=== PATIENT | female | born 1975 | race Caucasian/White ===

== ENCOUNTER → 2017-03-05 | Outpatient (CLI) | payer OTHER ==
--- NOTE | 2017-03-05 10:13 | RAD ---
Indication dysfunctional uterine bleeding. Initially transabdominal scans were obtained. The initial transabdominal scans were supplemented with transvaginal scans. HCG status is uncertain but for the purposes of this dictation will be assumed to be negative. The uterus measures approximately 10 x 6 x 5 cm. Endometrial thickness of approximately 6 mm is normal. Occasional nabothian cysts were noted. A significant finding is not seen associated with the ovaries. The right ovary contains a hypoechoic 2.5 cm mass compatible with a cyst. A slightly smaller cyst measuring approximately 2.3 cm is noted associated with the left ovary. IMPRESSION: Ovarian cysts. Unremarkable uterus and endometrium
== END | disposition home or self-care (01) ==
LOC: US 08:37
PROVIDERS: ATTEND Physician Assistant Medical
DX: N83.201 Unspecified ovarian cyst, right side (principal); N83.202 Unspecified ovarian cyst, left side; N93.8 Other specified abnormal uterine and vaginal bleeding
CPT/HCPCS: 76830; 76856

== ENCOUNTER → 2017-08-13 | Outpatient (CLI) | payer OTHER ==
--- NOTE | 2017-08-13 10:38 | RAD ---
Exam performed: 2 views of the chest. Indication: FOLLOW UP PNEUMONIA, FLUID REMOVED ON RT SIDE Date of Service:08/13/2017 2:00 AM . Comparison : None available. Findings: PA and lateral radiographs of the chest reveal a normal cardiomediastinal contour. The lungs are clear. Slight elevation of the right hemidiaphragm. Linear streaky opacities medial right lung base probably atelectasis. No pleural fluid is seen. The visualized osseous structures are unremarkable. Impression: Minimal right basilar atelectasis, otherwise unremarkable study
== END | disposition home or self-care (01) ==
LOC: DXRADRC 10:19
PROVIDERS: ATTEND Physician Assistant Medical
DX: J18.9 Pneumonia, unspecified organism (principal); J98.11 Atelectasis; J98.6 Disorders of diaphragm
CPT/HCPCS: 71020

== ENCOUNTER → 2018-01-15 | Outpatient (CLI) | payer OTHER ==
--- NOTE | 2018-01-15 16:19 | RAD ---
3 views right knee 01/15/2018 2:00 AM Indication: PAIN IN KNEE Comparison: None Findings: There is no fracture or dislocation identified. Articular surfaces are uninterrupted. Soft tissues are unremarkable. Impression: No evidence of acute osseous abnormality
== END | disposition home or self-care (01) ==
LOC: PMG 15:35
PROVIDERS: ATTEND Nurse Practitioner Family
DX: M25.561 Pain in right knee (principal)
CPT/HCPCS: 73562

== ENCOUNTER → 2019-01-14 | Outpatient (CLI) | payer OTHER ==
--- NOTE | 2019-01-14 13:24 | RAD ---
DATE: 01/14/2019 EXAM: MAMMO YULY SCREENING BILATERAL HISTORY: Routine screening COMPARISON: 07/13/2016 This study was interpreted with the benefit of Computerized Aided Detection (CAD). Breast Density: SCATTERED The breast parenchyma shows scattered fibroglandular densities. Breast parenchyma level B. FINDINGS: 2-D and 3-D tomosynthesis imaging was performed in CC and MLO projections. No new or enlarging breast densities are seen. Minimal benign type calcifications present. No suspicious microcalcifications have developed. IMPRESSION: Stable mammograms without evidence of malignancy. BI-RADS CATEGORY: 2 BENIGN FINDING(S) RECOMMENDED FOLLOW-UP: 12M 12 MONTH FOLLOW-UP PQRS compliance statement: Patient information was entered into a reminder system with a target due date for the next mammogram. Mammography is a sensitive method for finding small breast cancers, but it does not detect them all and is not a substitute for careful clinical examination. A negative mammogram does not negate a clinically suspicious finding and should not result in delay in biopsying a clinically suspicious abnormality. "Our facility is accredited by the [employer] Mammography [employer]."
== END | disposition home or self-care (01) ==
LOC: MAMMO 08:48
PROVIDERS: ATTEND Physician Assistant Medical
DX: Z12.31 Encounter for screening mammogram for malignant neoplasm of breast (principal)
CPT/HCPCS: 77063; 77067

== ENCOUNTER → 2019-08-13 | Outpatient (CLI) | payer OTHER ==
--- NOTE | 2019-08-13 12:26 | RAD ---
EXAM: Cervical spine, 5 views. HISTORY: Cubital tunnel syndrome. COMPARISON: None. FINDINGS: 5 views of the cervical spine are obtained. There is mild kyphosis centered at C5. There is minimal anterolisthesis of C4 on C5 and retrolisthesis of C5 on C6. There is degenerative endplate remodeling with disc space narrowing and osteophytosis at C5-C6. There is left greater than right facet arthropathy at C4-C5 and C5-C6. There is suspected mild right foraminal stenosis at C4-C5 and left foraminal stenosis at C5-C6. IMPRESSION: 1. Degenerative change primarily at C5-C6, and to a lesser extent, C4-C5. 2. Mild cervical kyphosis and slight listhesis at C4-C5 and C5-C6. Electronically signed by: Desiree Olsen MD (08/13/2019 12:23 PM) [facility]
== END | disposition home or self-care (01) ==
LOC: RAD 11:57
PROVIDERS: ATTEND Physician Assistant Medical
DX: G56.23 Lesion of ulnar nerve, bilateral upper limbs (principal); M47.892 Other spondylosis, cervical region; M40.292 Other kyphosis, cervical region; M48.02 Spinal stenosis, cervical region
CPT/HCPCS: 72050

== ENCOUNTER → 2020-01-20 | Outpatient (CLI) | payer OTHER ==
--- NOTE | 2020-01-21 12:05 | RAD ---
History: Routine screening. Technique: Bilateral digital mammographic routine views were obtained with 2-D and 3-D technique including CAD - computer aided detection. Comparison: 01/14/2019, 07/13/2016. Findings: Breast Tissue Density B :The breast tissue is composed of mixed fatty and fibroglandular tissue. There are no suspicious masses, microcalcifications or areas of architectural distortion. Impression: Negative mammogram. BI-RADS Category 1: Negative. Normal interval followup. A mammogram does not have 100% sensitivity and therefore a negative imaging study should not delay further work up of a suspicious abnormality. The patient will receive a letter with the results in the mail. Patient information is entered into the reminder system with a target due date for the next screening mammogram. The patient will receive a reminder. "Our facility is accredited by the [employer] Mammography Program." BI-RADS 1 -- negative findings (within normal)
== END | disposition home or self-care (01) ==
LOC: MAMMO 07:52
PROVIDERS: ATTEND Physician Assistant Medical
DX: Z12.31 Encounter for screening mammogram for malignant neoplasm of breast (principal)
CPT/HCPCS: 77063; 77067

== ENCOUNTER 2020-12-25 12:27 | Emergency (ER) | payer OTHER ==
[~2020-12-25] VITALS: Ht 165.1 cm; Wt 82.6 kg
--- NOTE | 2020-12-25 12:38 | PHYS DOC ---
Adult General HPI HPI Patient is a 45-year-old female presents emergency department complaining of bilateral arm tightness that radiated to her center chest and through to her back that started approximately 20 minutes prior to arrival while she was sitting in bleachers while watching her daughter at a game. Patient complains of shortness of breath, reports a 10/10 pain on a 1-10 pain scale. Patient states that she broke out in a sweat while in route to the emergency department, patient complains of nausea, denies vomiting abdominal pain diarrhea or constipation. Patient reports a similar episode approximately 2 weeks ago, however she does not remember how long the episode lasted for only that it just resolved on its own. Patient reports a allergy to morphine. Patient states her past medical history is leukemia which she sees Dr. Riley as oncologist. Patient past surgical history of a hysterectomy years ago. Review of Systems Review of Systems 14 body systems of review of systems have been reviewed. See HPI for pertinent positives and negative responses, otherwise all other systems are negative, nonpertinent or noncontributory. Current Medications Current Medications Patient reports taking her oncology medication TASIGNA unknown dose, and a radhika sterol medication that she cannot recall name or dose. Physical Exam Physical Exam Constitutional: Well developed, well nourished, no acute distress, non-toxic appearance. Patient clutching chest during physical exam HENT: Normocephalic, atraumatic, bilateral external ears normal, oropharynx moist, no oral exudates, nose normal. Eyes: PERRLA, EOMI, conjunctiva normal, no discharge. Neck: Normal range of motion, no tenderness, supple, no stridor. Cardiovascular:Heart rate regular rhythm, no murmur, bradycardic rhythm. Lungs & Thorax: Bilateral breath sounds clear to auscultation all lung barragan. Abdomen: Bowel sounds normal, soft, no tenderness, no masses, no pulsatile masses. Skin: Warm, dry, no erythema, no rash. Back: No tenderness, no CVA tenderness. Extremities: No tenderness, no cyanosis, no clubbing, ROM intact, no edema. Neurologic: Alert and oriented X 3, normal motor function, normal sensory function, no focal deficits noted. Psychologic: Affect normal, judgement normal, mood normal. EKG EKG EKG performed at [facility] by [facility], heart rate 58 bpm, TX interval 0.102, QTc interval 0.404, ST depression in leads II, III and aVF, acute STEMI noted, EKG interpreted by ED attending physician Dr. Ren. Second EKG performed at 1238, TX interval 0.142, QTc interval 0.422, heart rate 62 bpm, ST depression leads II, III, aVF, STEMI noted, EKG interpreted by ED attending physician Dr. Ren. Radiology/Procedures Radiology/Procedures [] Heart Score HEART Score for Chest Pain: HEART Score for Chest Pain Response (Comments) Value History Highly Suspicious [address] Depression 2 Age >45 - < 65 1 Risk Factors No Risk Factors 0 Total 5 Risk Factors: Risk Factors: DM, Current or recent (<one month) smoker, HTN, HLP, family history of CAD, obesity. Risk Scores: Risk Factors: DM, Current or recent (<one month) smoker, HTN, HLP, family history of CAD, obesity. Course & Med Decision Making Course & Med Decision Making Pertinent Labs and Imaging studies reviewed. (See chart for details) 45-year-old female, vital signs reviewed, presents emergency department with acute onset of chest pain that started in her arms and travel to her chest, EKG showed acute STEMI, discussed case with [facility] ED attending Dr. Villanueva, ED attending Dr. Ren reviewed patient case with reverser Dr. Smith, patient started on 324 chewable aspirin, heparin protocol, given 1/2 mg IV Dilaudid, 4 mg IV Zofran for nausea. Patient on telemetry monitor, pulse oximetry, noninvasive blood pressure monitoring. Patient emergent transfer to [facility] Training Officer. Could not complete heart score related to troponin result not available at time of transfer to [facility] Officer. At 1300, EMS arrived to ED to transport patient to [facility], upon reexamination of the patient, patient reports her pain down to a 7/10 on a 1-10 pain scale, transfer forms completed, patient is stable for transfer at this time. Critical Care Procedure Note Total critical care time: Approximately 30 minutes Due to a high probability of clinically significant, life threatening deterioration, the patient required my highest level of preparedness to intervene emergently and I personally spent this critical care time directly and personally managing the patient. This critical care time included obtaining a history; examining the patient; pulse oximetry; ordering and review of studies; arranging urgent treatment with development of a management plan; evaluation of patient's response to treatment; frequent reassessment; and, discussions with other providers. This critical care time was performed to assess and manage the high probability of imminent, life-threatening deterioration that could result in multi-organ failure. It was exclusive of separately billable procedures and treating other patients and teaching time. Please see MDM section and the rest of the note for further information on patient assessment and treatment. Dragon Disclaimer Dragon Disclaimer This electronic medical record was generated, in whole or in part, using a voice recognition dictation system. Departure Departure: Impression: Primary Impression: STEMI (ST elevation myocardial infarction) Disposition: 02 DC/TRF OTHER SHORT TERM HOS (Patient transferred to [facility] Training Officer team, Dr. Smith excepted patient in transfer and admission.) Condition: CRITICAL (Condition critical related to diagnosis STEMI, patient stable for transfer) Referrals: TRISTEN DEJESUS (PCP) Problem Qualifiers Primary Impression: STEMI (ST elevation myocardial infarction) Involved coronary artery: other anterior wall coronary artery Qualified Codes: I21.09 - ST elevation (STEMI) myocardial infarction involving other coronary artery of anterior wall RAJWINDER JANG APRN Dec 25, 2020 12:38
[2020-12-25] MEDS ORDERED: ASPIRIN CHEWABLE 81 MG TABLET. PO ONE (12:45)
[2020-12-25] MEDS ORDERED: HEPARIN for IV BOLUS 10,000 UNIT/10 ML VIAL. IV ONE (12:45)
[2020-12-25] MEDS ORDERED: HEPARIN 25,000UTS/250ML PREMIX 250 ML IV PRN (12:45)
[2020-12-25] MEDS ORDERED: HEPARIN for IV BOLUS 10,000 UNIT/10 ML VIAL. IV PRN (12:45)
[2020-12-25] MEDS ORDERED: HYDROmorphone PF 1 MG/ML DISP.SYRIN IVP ONE (12:45)
[2020-12-25] MEDS ORDERED: ONDANSETRON PF 4 MG/2 ML VIAL. IVP ONE (13:00)
[2020-12-25 13:03] VITALS: BP 109/71
[2020-12-25 13:21] LABS: BASO % 0 % (0-3); EOS # 0.1 x10^3/uL (0.0-0.7); EOS % 1 % (0-3); HEMATOCRIT 39.7 % (36.0-47.0); LYMPH # 3.4 x10^3/uL (1.0-4.8); LYMPH % 29 % (24-48); MEAN CORPUSCULAR HEMOGLOBIN 30 pg (25-35); MEAN CORPUSCULAR HGB CONC 33 g/dL (31-37); MEAN CORPUSCULAR VOLUME 91 fL (79-100); MONO # 0.6 x10^3/uL (0.0-1.1); MONO % 6 % (0-9); NEUT # 7.5 x10^3uL (1.8-7.7); NEUT % 64 % (31-73); PLATELET COUNT 320 x10^3/uL (140-400); RED BLOOD COUNT 4.35 x10^6/uL (3.50-5.40); RED CELL DISTRIBUTION WIDTH 13.9 % (11.5-14.5); WHITE BLOOD COUNT 11.6 x10^3/uL (4.0-11.0)
[2020-12-25 13:41] LABS: ANION GAP 13 (6-14); BLOOD UREA NITROGEN 8 mg/dL (7-20); BUN/CREATININE RATIO 10 (6-20); CALCIUM 9.4 mg/dL (8.5-10.1); CARBON DIOXIDE 22 mmol/L (21-32); CHLORIDE 104 mmol/L (98-107); CREATININE 0.8 mg/dL (0.6-1.0); GFR 77.6; GLUCOSE 147 mg/dL (70-99); POTASSIUM 3.1 mmol/L (3.5-5.1); SODIUM 139 mmol/L (136-145)
[2020-12-25 13:57] LABS: ALBUMIN 3.6 g/dL (3.4-5.0); ALBUMIN/GLOBULIN RATIO 0.9 (1.0-1.7); ALK PHOS 81 U/L (46-116); ALT (SGPT) 29 U/L (14-59); AST (SGOT) 25 U/L (15-37); TOTAL BILIRUBIN 1.2 mg/dL (0.2-1.0); TOTAL PROTEIN 7.6 g/dL (6.4-8.2)
--- NOTE | 2020-12-25 14:18 | EKG ---
[address] [address] Test Date: 2020-12-25 Test Time: 12:38:14 Pat Name: SHAHRIAR PEACOCK Department: Room: Gender: F Rectifying Attendant: OFELIA : 1975 Requested By: RAJWINDER JANG Order Number: [id number] Reading MD: Measurements Intervals [place] Rate: 62 P: 57 RI: 142 QRS: 48 QRSD: 74 T: 42 QT: 414 QTc: 422 Interpretive Statements SINUS RHYTHM ST ABNORMALITY, POSSIBLE INFERIOR SUBENDOCARDIAL INJURY ABNORMAL ECG RI6.02 No previous ECG available for comparison
== END 2020-12-25 13:14 | disposition short-term general hospital (02) ==
LOC: ER 12:27
DX: I21.3 ST elevation (STEMI) myocardial infarction of unspecified site (principal); R06.02 Shortness of breath; R11.0 Nausea; Z88.6 Allergy status to analgesic agent
CPT/HCPCS: 36415; 80053; 82553; 84484; 85025; 85610; 85730; 87426; 93005; 96365; 96375; 99285; C9803; J1170; J1644; J2405; U0003

== ENCOUNTER → 2021-02-15 | Outpatient (CLI) | payer OTHER ==
--- NOTE | 2021-02-17 17:10 | RAD ---
DATE: 02/15/2021 EXAM: MAMMO YULY SCREENING BILATERAL HISTORY: Screening COMPARISON: 07/13/2016, 01/14/2019, 01/20/2020 This study was interpreted with the benefit of Computerized Aided Detection (CAD). Breast Density: SCATTERED The breast parenchyma shows scattered fibroglandular densities. Breast parenchyma level B. FINDINGS: There is an asymmetry in the upper left breast far posterior depth on MLO view. No suspicious mass, architectural distortion, or calcifications. IMPRESSION: Asymmetry in the upper posterior left breast. Recommend spot compression MLO and full-field ML views to further evaluate. BI-RADS CATEGORY: 0 INCOMPLETE: NEEDS ADDITIONAL IMAGING EVALUATION AND/OR PRIOR MAMMOGRAMS FOR COMPARISON. RECOMMENDED FOLLOW-UP: ADD ADDITIONAL IMAGING PQRS compliance statement: Patient information was entered into a reminder system with a target due date for the next mammogram. Mammography is a sensitive method for finding small breast cancers, but it does not detect them all and is not a substitute for careful clinical examination. A negative mammogram does not negate a clinically suspicious finding and should not result in delay in biopsying a clinically suspicious abnormality. "Our facility is accredited by the [employer] Mammography Program."
== END ==
LOC: MAMMO 07:56
PROVIDERS: ATTEND Physician Assistant Medical
DX: Z12.31 Encounter for screening mammogram for malignant neoplasm of breast (principal)
CPT/HCPCS: 77063; 77067

== ENCOUNTER → 2021-03-08 | Outpatient (CLI) | payer OTHER ==
--- NOTE | 2021-03-09 09:01 | RAD ---
CLINICAL INDICATION: SHAHRIAR PEACOCK, who is 46 years of age, presents for further evaluation of an abnormality in the left breast COMPARISON: Prior mammographic imaging for 02/15/2021 01/20/2020 01/14/2019 TECHNIQUE: Diagnostic imaging of the left breast was performed. In addition dedicated sonographic ursula luation of the left breast in the region of mammographic concern was performed. BREAST COMPOSITION: There are scattered fibroglandular densities. MAMMOGRAM FINDINGS: Spot compression views of the left breast redemonstrate the focal asymmetry in the superior left neha st posterior depth. No suspicious axillary mass is identified. ULTRASOUND FINDINGS: Targeted ultrasound of the mammographic area of concern was performed. Parenchymal tissue of normal echotexture is present in the upper outer left breast at the posterior d epth. 2.1 x 0.8 cm lymph node is seen in the left axilla with thin cortex. IMPRESSION: 1. Left breast probably benign asymmetry for which follow up is recommended. RECOMMENDATION: In the absence of new clinical symptoms or change in physical exam, short term follow up diagnostic e xamination is recommended in 6 months to assess for interval stability, to include dedicated mammogra phic and sonographic evaluation. BIRADS 3: PROBABLY BENIGN Electronically signed by: Rufus Landis MD (03/09/2021 8:59 AM) [id number]
== END ==
LOC: MAMMO 09:37
PROVIDERS: ATTEND Physician Assistant Medical
DX: R92.2 Inconclusive mammogram (principal)
CPT/HCPCS: 76641; 77065

== ENCOUNTER → 2021-09-08 | Outpatient (CLI) | payer OTHER ==
--- NOTE | 2021-09-08 16:23 | RAD ---
EXAMINATION: MG DIGITAL UNILAT DIAGNOSTIC MAMMO WITH YULY, US BREAST LTD LT History: Six-month follow-up ultrasound probably benign asymmetry in the breast Comparison: None. Technique: Bilateral digital diagnostic mammogram views were obtained. CAD was utilized. 3-D tomosyn thesis images were acquired. Subsequent left breast ultrasound was performed in the upper outer quadr ant. Findings: Breast Tissue Density B : There are scattered areas of fibroglandular density. There are no dominant masses, suspicious microcalcifications, or architectural distortion. Asymmetry in the upper posterior left breast on MLO view is unchanged. There is no correlation on CC view and this has the appearance of normal fibroglandular tissue on tomosynthesis. Ultrasound of the upper outer left breast demonstrates normal fibroglandular tissue. No cyst or mass. Normal-appearing lymph node in the left axilla. IMPRESSION: Stable probably benign left breast asymmetry, likely an island of fibroglandular tissue. Recommend 6 month follow-up mammogram and ultrasound of the left breast, at which time the patient will be due fo r her annual bilateral mammogram. BI-RADS category 3: Probably benign. Mammography is the most sensitive method for finding small breast cancers, but it does not detect the m all and is not a substitute for careful clinical examination. A negative mammogram does not negate a clinically suspicious finding and should not result in delay in biopsying a clinically suspicious a bnormality. "Our facility is accredited by the [employer] Mammography [employer]." The images were reviewed with computer aided detection. Patient information is entered into the reminder system with a target due date for the next screening mammogram. Mammography is the most sensitive method for finding small breast cancers, but it does not detect the m all and is not a substitute for careful clinical examination. A negative mammogram does not negate a clinically suspicious finding and should not result in delay in biopsying a clinically suspicious a bnormality. "Our facility is accredited by the [employer] Mammography [employer]." Electronically signed by: Radha Drake MD (09/08/2021 4:21 PM) [id number]
== END ==
LOC: MAMMO 12:47
PROVIDERS: ATTEND Physician Assistant Medical
DX: R92.8 Other abnormal and inconclusive findings on diagnostic imaging of breast (principal)
CPT/HCPCS: 76642; 77065; G0279; 77061